=== PATIENT | male | born 1960 | race Caucasian/White ===

== ENCOUNTER → 2018-05-20 | Outpatient (CLI) | payer OTHER ==
--- NOTE | 2018-05-20 19:41 | US ---
EXAMINATION TYPE: US venous doppler duplex LE LT DATE OF EXAM: 05/20/2018 6:18 PM COMPARISON: NONE CLINICAL HISTORY: R60.1 edema. Left leg edema SIDE PERFORMED: Left TECHNIQUE: The lower extremity deep venous system is examined utilizing real time linear array sonog yevgeniy with graded compression, doppler sonography and color-flow sonography. VESSELS IMAGED: External Iliac Vein (EIV) Common Femoral Vein Deep Femoral Vein Greater Saphenous Vein * Femoral Vein Popliteal Vein Small Saphenous Vein * Proximal Calf Veins (* superficial vessels) Left Leg: Negative for DVT No evidence of DVT left leg. IMPRESSION: Normal exam. No evidence of deep venous thrombosis in the left leg.
== END | disposition home or self-care (01) ==
LOC: RADUSMAIN 17:25
PROVIDERS: ATTEND Physician Assistant Medical
DX: R60.1 Generalized edema (principal); Z88.8 Allergy status to other drugs, medicaments and biological substances

== ENCOUNTER → 2019-12-29 | Outpatient (CLI) | payer OTHER ==
--- NOTE | 2019-12-29 14:59 | MR ---
EXAMINATION TYPE: MR hip LT wo con DATE OF EXAM: 12/29/2019 COMPARISON: No radiographic correlation available HISTORY: 59-year-old male M25.552, Lt hip pain TECHNIQUE: Multiplanar, multisequence images of the left hip were obtained without IV contrast. FINDINGS: There is severe degenerative change of the left hip with complete superolateral loss of cartilage and joint space and [id number] abutment with subchondral sclerosis and underlying cystic change. There appears to be broad-based tear along the superior acetabular labrum with a 2.5 cm long string of sma ll paralabral cyst, individually measuring up to 6 mm. At least moderate degenerative change of the right hip with focal cartilage loss along the superolate ral aspect of the weightbearing acetabulum. Mild subchondral edema and articular surface irregularity . There is a tear of the anterior superior acetabular labrum with a 8 mm perineural cyst. No evidence for acute fracture or AVN. No significant hip joint effusion. The SI joints and sacrum appear intact. Heterogeneous marrow suggesting red marrow conversion. No suspicious bone marrow placement seen. Iliopsoas and gluteal insertions as well as the hamstrings and rectus femoris origins appear intact. Symmetric course, caliber, and signal intensity of the sciatic nerves. Prominent distention of the urinary bladder. Prostate gland measures 4.1 cm wide. IMPRESSION: 1. Severe left hip OA with bone on bone along the superolateral weightbearing aspect of the joint. As sociated superior labral tears. 2. Mild to moderate right hip OA with associated anterior superior labral tear and [address] 3. Radiographs can better assess the bony anatomy. No hip fracture or AVN. 4. Prominent red marrow reconversion can be seen in the setting of anemia, obesity, smoking, chronic disease.
--- NOTE | 2019-12-29 15:11 | MR ---
EXAMINATION TYPE: MR lumbar spine wo con DATE OF EXAM: 12/29/2019 COMPARISON: None HISTORY: Chronic LBP, LLE radic TECHNIQUE: Multiplanar, multisequence images of the lumbar spine were acquired. L1-L2: Normal disc appearance without desiccation. No herniation, protrusion or disc bulging. No ca nal stenosis is present. Foramina are patent bilaterally. L2-L3: Normal disc appearance without desiccation. No herniation, protrusion or disc bulging. No ca nal stenosis is present. Foramina are patent bilaterally. L3-L4: Minimal broad-based disc bulge contacts anterior thecal sac. No significant central stenosis o r foraminal encroachment. L4-L5: Circumferential posterior extension of broad-based disc bulge causes mild anterior mass effect on the thecal sac. Facet arthropathy with hypertrophy ligamentum flavum causes minimal posterior lat eral mass effect on the thecal sac. Circumferential extension of endplate disc complex results in alin e foraminal encroachment greater on the right. L5-S1: There is a posterior central disc herniation likely contacting the anterior thecal sac, possib ly proximal S1 nerve roots right greater than left. Circumferential extension of endplate disc comple x results in foraminal encroachment right greater than left. No significant spinal stenosis. There ar e facet arthropathy changes present. Lumbar segments are intact. No paraspinal masses are identified. Conus medullaris has a normal appe arance. Lumbar vertebral bodies show preserved height and alignment. There is multilevel spondylosis with endplate discogenic marrow signal change. Loss of disc height signal is greatest at L5-S1, L4-5 consistent with disc desiccation and degenerative disc disease. Probable hemangioma in the posterior aspect of L5 vertebral body to the left of midline and also within the L2 vertebral body, T12 vertebr al body. IMPRESSION: Degenerative disc disease and facet arthropathy. Foraminal encroachment. Disc herniation L5-S1, corre late for right L5, S1 radiculopathy
== END | disposition home or self-care (01) ==
LOC: RADMRIMAIN 13:35
PROVIDERS: ATTEND Physician Assistant Medical
DX: M16.0 Bilateral primary osteoarthritis of hip (principal); S43.432A Superior glenoid labrum lesion of left shoulder, initial encounter; M85.68 Other cyst of bone, other site
CPT/HCPCS: 72148

== ENCOUNTER 2021-06-23 11:54 | Emergency (ER) | payer OTHER ==
[2021-06-23] MEDS ORDERED: IBUPROFEN 800 MG TAB PO STA (12:54)
[2021-06-23] MEDS ORDERED: ACETAMINOPHEN TAB 500 MG TAB PO STA (12:54)
[2021-06-23] MEDS ORDERED: BAMLANIVIMAB (EUA) 700 MG, ETESEVIMAB (EUA) 1,400 MG in SODIUM CHLORIDE 0.9% 50 ML IVPB ONE (15:00)
[2021-06-23] MEDS ORDERED: SODIUM CHLORIDE 0.9% 50 ML IVPB ONE (15:00)
--- NOTE | 2021-06-23 15:40 | XR ---
EXAMINATION TYPE: XR abdomen 1V DATE OF EXAM: 06/23/2021 COMPARISON: NONE HISTORY: Constipation TECHNIQUE: 2 views FINDINGS: 2 views upright show no sign of intestinal obstruction or pneumoperitoneum. Fecal pattern i s normal. There are no pathologic calcifications. Lung bases are clear of consolidation. There is sli ght blunting right costophrenic angle. There is left hip prosthesis. IMPRESSION: Nonacute abdomen. Possible small right pleural effusion.
--- NOTE | 2021-06-23 16:08 | ED ---
General Adult HPI - General Chief complaint: Upper Respiratory Infection Stated complaint: Covid+/BAM Time Seen by Provider: 06/23/21 12:48 Source: patient, RN notes reviewed, old records reviewed Mode of arrival: ambulatory Limitations: no limitations - History of Present Illness Initial comments: Patient is a 60-year-old male who presents emergency department over concern for COVID-19 infection. Onset of symptoms was June 18. Tested positive today. He is been having a low-grade fever as well as a cough and chills and some shortness of breath over last few days. Concern for possible COVID-19 infection. He was not vaccinated for COVID-19. He presents emergency department for further evaluation. His only other acute complaint is concerned for possible constipation. States he has not been eating much but also has not had a normal bowel movement few days. He is on stool softeners currently. His no other acute complaints at this time. Still tolerating by mouth intake. Still passing gas. - Related Data Previous Rx's Medication Instructions Recorded Albuterol Inhaler [Ventolin Hfa 1 puff INHALATION RT-QID #8 gm 06/23/21 Inhaler] Na Phos,M-B/Na Phos,Di-Ba [Fleet 1 dose RECTAL ONCE #1 each 06/23/21 Adult] Allergies Allergy/AdvReac Type Severity Reaction Status Date / Time No Known Allergies Allergy Verified 06/23/21 12:24 Review of Systems ROS Statement: Those systems with pertinent positive or pertinent negative responses have been documented in the HPI. Review of Systems: CONST: Endorses fever EYES: Denies blurry vision ENT: Endorses nasal congestion C/V: Denies Chest pain RESP: Denies shortness of breath GI: Denies abdominal pain : Denies dysuria SKIN: Denies rash. MSK: Denies joint pain. NEURO: Denies headache ROS Other: All systems not noted in ROS Statement are negative. Past Medical History Past Medical History: Hypertension History of Any Multi-Drug Resistant Organisms: None Reported Past Surgical History: Orthopedic Surgery Past Psychological History: No Psychological Hx Reported Smoking Status: Former smoker Past Alcohol Use History: None Reported Past Drug Use History: None Reported General Exam - General Exam Comments Initial Comments: General: Appears in no acute distress. Patient is febrile. HEAD: Normal with no signs of head trauma. EYES: PERRLA, EOMI, conjunctiva normal, no discharge. ENT: Hearing grossly intact, normal oropharynx. RESPIRATORY: Clear breath sounds bilaterally. No wheezes, rales, or rhonchi. Not hypoxic. No increased work of breathing. C/V: Regular rate and rhythm. S1 and S2 auscultated, no edema, peripheral pulses 2+ and intact throughout ABD: Abd is soft, nontender, nondistended EXT: Normal range of motion, no obvious deformity SKIN: No rashes or lesions observed on exposed skin. NEURO: Alert and oriented 4. Limitations: no limitations Course Vital Signs 06/23/21 06/23/21 06/23/21 12:20 12:54 15:00 Temperature 102.0 F H Pulse Rate 89 75 Respiratory 18 18 16 Rate Blood Pressure 195/94 135/74 O2 Sat by Pulse 96 93 L Oximetry 06/23/21 06/23/21 15:48 17:03 Temperature 97.8 F 96.8 F L Pulse Rate 77 74 Respiratory 16 18 Rate Blood Pressure 139/74 137/85 O2 Sat by Pulse 93 L 92 L Oximetry Medical Decision Making - Medical Decision Making This on the patient's presentation and physical exam, he has a COVID-19 infection. Swab was performed palpation and he did email the results of to the appropriate staff member. He seeking monoclonal antibody therapy. He can continue therapy and will be administered it. He is not hypoxic and is in no respiratory distress. He is complaining of constipation, I will provide an abdominal x-ray. He'll also receive an outpatient prescription for an enema and did offer him one inpatient but he declines at this time. X-ray revealed a non-acute abdomen with no signs of constipation. Patient tolerated the monoclonal antibody therapy well. I updated him on the results of his x-ray. He will be discharged home at this time. We discussed quarentine. I will provide the patient with a prescription for Fleet enema, albuterol. I instructed the patient to follow up with their PCP in the next 3 days. I explained that the patient should return to the emergency department if they experience any worsening symptoms. Strict return precautions were discussed with the patient. The patient expressed understanding of these instructions. I answered all questions that the patient had. The patient was discharged home in fair condition with their prescriptions and follow up information. Disposition Clinical Impression: COVID-19 Disposition: HOME SELF-CARE Condition: Fair Instructions (If sedation given, give patient instructions): Coronavirus Disease 2019 (COVID-19) Prescriptions: Na Keturah,MGeorge/Tracy Uribe [Fleet Adult] 1 dose RECTAL ONCE #1 each Albuterol Inhaler [Ventolin Hfa Inhaler] 1 puff INHALATION RT-QID #8 gm Is patient prescribed a controlled substance at d/c from ED?: No Referrals: [facility],Clinic [Primary Care Provider] - 1-2 days
[2021-06-23 17:04] VITALS: BP 137/85; PULSE 74; RESP 18; TEMP 96.8
== END 2021-06-23 17:10 | disposition home or self-care (01) ==
LOC: EC 11:54
DX: U07.1 COVID-19 (principal); I10 Essential (primary) hypertension; Z87.891 Personal history of nicotine dependence
CPT/HCPCS: 99284; M0245; 74018

== ENCOUNTER → 2023-07-08 | Outpatient (CLI) | payer OTHER ==
--- NOTE | 2023-07-08 13:08 | CA ---
Exercise Stress Test Report Name: Mark Harp Exam Date: 07/08/2023 09:59 Exam Location: [facility] Ht (in): 69 Wt (lb): 250 BSA: 2.27 Ordering Phys: Lucila Joe DO Referring Phys: Lucila Joe DO Technologist: LANG Age: 62 Gender: M : 1960 Procedure CPT: Indications: OTHER CHEST PAIN ICD-10 Codes: Patient History: HTN, FORMER SMOKER, PRIOR HEART CATH Medications: Meds past 24 hrs: Pretest Chest Pain: STRESS TEST Tray Protocol Exercise Duration (min:sec): 09:[address] Depressions (mm): Angina Score: Kendrick Score: Resting HR (bpm): 74 Peak HR (bpm): 143 Resting BP (mmHg): 140 / 84 Peak BP (mmHg): 215 / 89 MPHR: 160 Target HR: 136 % MPHR: 89 METS: 10.9 Total Dose: Peak Dose: Atropine: Double Product: 55679 BP Response: Stress Termination: MAX EXERTION/TARGET HR Stress Symptoms: NO SYMPTOMS Stress Summary: ECG ANALYSIS Resting ECG: Stress ECG: CONCLUSIONS Patient underwent exercise stress EKG with a Tray protocol treadmill stress test. Patient exercised into Stage 4 for a total of 9 minutes and 30 seconds reaching a total of 10.9 METS. Patient's maximum heart rate was 143 which represented 89% age- predicted maximum heart rate. Stress EKG findings: At baseline patient's EKG showed normal sinus rhythm, normal axis, no significant ST or T wave abnormalities. At peak exercise, EKG showed no significant change from baseline. Conclusions: 1. Normal EKG response to exercise without evidence of inducible ischemia. 2. Good exercise capacity. Dr. Ronaldo Ogden DO (Electronically Signed) Final Date: 08 July 2023 13:07
--- NOTE | 2023-07-08 15:16 | NM ---
EXAMINATION TYPE: NM stress cardiolite complete DATE OF EXAM: 07/08/2023 COMPARISON: NONE CLINICAL INDICATION: Male, 62 years old with history of R07.89 other chest pain; TECHNIQUE: After the intravenous administration of 10.8 mCi Tc 99m Sestamibi - Rest images obtained 60 minutes post injection. The patient exercised using a DENG protocol and 1 minute prior to peak exercise was injected with 25.8 mCi Tc 99m Sestamibi - Stress images obtained 31 minutes post injecti on. FINDINGS: Targeted heart rate (136 BPM) was achieved during performance of the study (heart rate achieved 143 B PM). Review of stress and rest SPECT images demonstrates reversibility along the mid to basal anteros eptal wall and also at the lateral apical wall. However, findings are indeterminate as they are not c orroborated on the polar maps. Gated analysis shows normal wall motion with an estimated left ventri cular ejection fraction of 54 %. TID is calculated at 0.96, within normal limits. IMPRESSION: 1. Reversibility along the mid to basal anteroseptal wall and a small area along the lateral apical w all on SPECT images. Findings are equivocal for inducible ischemia as they are not corroborated on t he polar maps. Further evaluation as clinically indicated. 2. Estimated LVEF borderline at 54%.
== END | disposition home or self-care (01) ==
LOC: RADNMMAIN 08:02
PROVIDERS: ATTEND Family Medicine
DX: R07.89 Other chest pain (principal); R06.00 Dyspnea, unspecified; I10 Essential (primary) hypertension; Z79.891 Long term (current) use of opiate analgesic
CPT/HCPCS: 93017; 78452; A9500

== ENCOUNTER → 2023-07-26 | Outpatient (CLI) | payer OTHER ==
[2023-07-26 13:54] LABS: HCT 45.2 % (39.6-50.0); HGB 14.5 g/dL (13.0-17.0); MCH 29.7 pg (27.0-32.0); MCHC 32.1 g/dL (32.0-37.0); MCV 92.4 FL (80.0-97.0); Mean Platelet Volume 9.5 FL (9.5-12.2); NRBC Per 100 WBC 0 X 10*3/uL (0.00-0.01); Platelet Count 248 X 10*3/uL (140-440); RBC 4.89 X 10*6/uL (4.40-5.60); RDW 13.1 % (11.5-14.5); WBC 4.82 X 10*3/uL (4.50-10.00)
[2023-07-26 14:06] LABS: Blood Urea Nitrogen 18.8 mg/dL (9.0-27.0); Carbon Dioxide 26.6 mmol/L (21.6-31.8); Chloride 106 mmol/L (96-109); Potassium 4.6 mmol/L (3.5-5.5); Sodium 141 mmol/L (135-145)
== END | disposition home or self-care (01) ==
LOC: LABPAT 08:30
PROVIDERS: ATTEND Internal Medicine Interventional Cardiology
DX: Z01.818 Encounter for other preprocedural examination (principal); R07.9 Chest pain, unspecified; R94.39 Abnormal result of other cardiovascular function study
CPT/HCPCS: 36415; 80051; 82565; 84520; 85027

== ENCOUNTER 2023-08-12 06:15 | Day surgery (SDC) | payer OTHER ==
[2023-08-07 10:53] VITALS: BMI 37.5
[2023-08-12] MEDS ORDERED: ASPIRIN 325 MG TAB PO STA (06:24)
[2023-08-12] MEDS ORDERED: HEPARIN SODIUM,PORCINE (1 ML) 2,500 UNIT in SODIUM CHLORIDE 0.9% 250 ML IRRIGATION PRN (06:24)
[2023-08-12] MEDS ORDERED: NITROGLYCERIN SL TABS 0.4 MG TAB SUBLINGUAL PRN (06:24)
[2023-08-12] MEDS ORDERED: ALPRAZolam 0.5 MG TAB PO PRN (06:24)
[2023-08-12] MEDS ORDERED: HEPARIN SODIUM,PORCINE 10,000 UNIT in SODIUM CHLORIDE 0.9% 1,000 ML IRRIGATION PRN (06:24)
[2023-08-12] MEDS ORDERED: SODIUM CHLORIDE 0.9% 1,000 ML in EMPTY BAG 1 BAG IV SCH (06:24)
[2023-08-12] MEDS ORDERED: ALPRAZolam 0.25 MG TAB PO PRN (06:24)
[2023-08-12] MEDS ORDERED: ATORVASTATIN 80 MG TAB PO STA (06:24)
[2023-08-12] MEDS ORDERED: SODIUM CHLORIDE 0.9% 1,000 ML IV ONE (06:38)
[2023-08-12] MEDS ORDERED: HEPARIN SODIUM 1,000 UN/ML (10ML VL) ONE (07:10)
[2023-08-12] MEDS ORDERED: fentaNYL (PF) 50 MCG/ML 2 ML AMP ONE (07:10)
[2023-08-12] MEDS ORDERED: VERAPAMIL 2.5 MG/ML 2 ML AMP ONE (07:10)
[2023-08-12] MEDS ORDERED: LIDOCAINE 1% INJ 10MG/ML (20 ML MDV) ONE (07:10)
[2023-08-12 07:20] VITALS: RESP 16; TEMP 97.4
[2023-08-12] MEDS ORDERED: fentaNYL (PF) 50 MCG/ML 2 ML AMP IVP ONE (07:33)
[2023-08-12] MEDS ORDERED: LIDOCAINE 1% INJ 10MG/ML (20 ML MDV) SQ ONE (07:35)
[2023-08-12] MEDS ORDERED: VERAPAMIL SYRINGE (5 MG/10 ML) INTRAARTER ONE (07:36)
[2023-08-12] MEDS ORDERED: HEPARIN SODIUM 1,000 UN/ML (10ML VL) IVP ONE (07:39)
[2023-08-12] MEDS ORDERED: IOPAMIDOL-370 100ML BTL IVP ONE (07:45)
[2023-08-12] MEDS ORDERED: RX INFO: IV CONTRAST WAS GIVEN 1 EACH MISC MISCELLANE PRN (07:53)
--- NOTE | 2023-08-12 07:58 | P.CARDCATH ---
Date of Procedure: 08/12/23 Description of Procedure: Cardiac Catheterization: The patient is a 62-year-old male with known history of hypertension who has been complaining of episodes of chest discomfort and had an abnormal MPI. Recommendations were made regarding cardiac catheterization, the risks and the complications were discussed with the patient who is in full understanding and agreement. Procedure Description: Patient was brought to label designer in fasting semi-sedated state after receiving Fentanyl and Benadryl achieiving moderate conscious sedated state. Using Xylocaine Anesthesia and modified Seldinger technique, a 6-Yemeni sheath was introduced in the right radial artery . Subsequently, selective coronary angiography was performed using a 5-Yemeni 3.5 bend Mehul catheter. Multiple views of the coronary artery including hemiaxial views were obtained. The right Mehul catheter was used to cross the aortic valve and LVEDP was calculated. Following that, catheter and sheath were removed. Hemostasis was obtained with deployment of vascular band . There was no immediate complication. Patient was returned to room in stable condition. Of note, the patient received a total of 5000 units of intravenous heparin as well as intra-arterial verapamil. Findings: Left main: This is a short size vessel, bifurcating into LAD and left circumflex, left main has no obstructive disease LAD: This is a large size vessel, reaching to the apex, giving rise to 3 small diagonal branch. The proximal LAD after the takeoff of the first diagonal branch has a 20 to 30% plaque with no high-grade stenosis. Left circumflex: This is a large nondominant vessel giving rise to a large obtuse marginal branch. The left circumflex and its branches have no obstructive disease. RCA: This is a dominant vessel bifurcating distally to PDA and PLV. The mid right coronary artery has mild intimal disease, diffuse with area of stenosis up to 20 to 30% with no high-grade stenosis Left Ventriculogram: Not performed Hemodynamics: There was no gradient across aortic valve, LVEDP was 15-20 mmHg Conclusion: 1. 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 No evidence of obstructive disease in the left circumflex 3. Right dominance Recommendations: I have recommended to continue medical therapy with aggressive coronary risks modifications. The findings and the recommendations were discussed with the patient and the family and they were in full understanding and agreement. Duration of sedation is 11 minutes.
[2023-08-12] MEDS ORDERED: SODIUM CHLORIDE 0.9% 1,000 ML IV SCH (08:00)
[2023-08-12] MEDS ORDERED: ASPIRIN 81 MG PO SCH (09:00)
[2023-08-12 10:16] VITALS: BP 124/61; PULSE 55
[2023-08-13] MEDS ORDERED: lisinopriL 20 MG TAB PO SCH (09:00)
[2023-08-13] MEDS ORDERED: ATORVASTATIN 20 MG TAB PO SCH (09:00)
== END 2023-08-12 11:10 | disposition home or self-care (01) ==
LOC: CATHCVL 06:15
PROVIDERS: ATTEND Internal Medicine Interventional Cardiology
DX: R94.39 Abnormal result of other cardiovascular function study (principal); I10 Essential (primary) hypertension; Z79.899 Other long term (current) drug therapy; Z87.891 Personal history of nicotine dependence
CPT/HCPCS: 93458; 99152; C1769 ×2; C1894; J2001; J3010; J1644; Q9967